=== PATIENT | male | born 1960 | race Two or more races ===

== ENCOUNTER 2022-12-27 07:21 | Day surgery (SDC) | payer OTHER ==
[~2022-12-27] VITALS: Ht 175.3 cm; Wt 93.9 kg
[~2022-12-27 07:21] MED LIST: AMLODI PO; CARDURA XL4 MG PO; VASOTEC20 M1 PO; VITAMIN C100 MG PO
[2022-12-27] MEDS ORDERED: TYLENOL ARTHRI650 MG PO (09:15)
[2022-12-27] MEDS ORDERED: TRAMADOL HCL50 MG PO (09:15)
[2022-12-27] MEDS ORDERED: MIRALAX17 GM PO (09:15)
== END 2022-12-27 15:00 | disposition home or self-care (01) ==
LOC: CIR.AMB 07:21
PROVIDERS: ATTEND Surgery
DX: K40.90 Unilateral inguinal hernia, without obstruction or gangrene, not specified as recurrent (principal); K42.9 Umbilical hernia without obstruction or gangrene; I10 Essential (primary) hypertension; Z20.822 Contact with and (suspected) exposure to COVID-19
CPT/HCPCS: 49650; 49591; C1781